=== PATIENT | male | born 1955 | race Caucasian/White ===

== ENCOUNTER → 2017-02-20 | Day surgery (SDC) | payer OTHER ==
[2016-03-15 11:20] VITALS: BP 140/59
[~2017-02-20] MED LIST: CETIRIZINE10 MG PO; DOXYCYCLINE HY100 M5 PO; FLONASE0.05 MG/AC NS; LISINOPRIL20 MG PO; METFORMIN HYDR500 M1 PO; OMEPRAZOLE D/R20 MG PO; PERCOCET 325 MG1 TA2 PO; PRILOSEC 20MG20 MG PO; PROPRANOLOL HY120 MG PO; SERZONE100 MG PO; TYLENOL 500MG500 MG PO; ULTRAM 50MG TAB50 MG PO; [UNRECOGNIZED DRUG - OTHER] PO
== END ==
LOC: MSO 13:25
DX: Z12.11 Encounter for screening for malignant neoplasm of colon (principal); K57.90 Diverticulosis of intestine, part unspecified, without perforation or abscess without bleeding; Z83.71 Family history of colonic polyps; I10 Essential (primary) hypertension; K21.9 Gastro-esophageal reflux disease without esophagitis; E11.9 Type 2 diabetes mellitus without complications; Z79.84 Long term (current) use of oral hypoglycemic drugs
CPT/HCPCS: 00810; J3010; J7030

== ENCOUNTER → 2020-07-21 | Outpatient (CLI) | payer MEDICARE, OTHER ==
[2016-03-15 11:20] VITALS: BP 140/59
== END ==
LOC: RAD 09:13
DX: M17.0 Bilateral primary osteoarthritis of knee (principal)

== ENCOUNTER 2021-03-26 18:53 | Emergency (ER) | payer MEDICARE, OTHER ==
[2021-03-26] MEDS ORDERED: GLUCOPHAGE PO (19:27)
[2021-03-26] MEDS ORDERED: LIPO-FLAVONOID1 EACH PO (19:29)
[2021-03-26] MEDS ORDERED: PIOGLITAZONE HY45 MG PO (19:30)
[2021-03-26] MEDS ORDERED: PRAVASTATIN SOD40 MG PO (19:30)
[2021-03-26] MEDS ORDERED: MULTI PRO CAPS1 EACH PO (19:31)
[2021-03-26] MEDS ORDERED: CLARITIN10 M1 PO (19:32)
[2021-03-26] MEDS ORDERED: PANTOPRAZOLE SO20 M1 PO (19:33)
[2021-03-26] MEDS ORDERED: FLUTICASON0.05 MG/AC NS (19:34)
[2021-03-26] MEDS ORDERED: XANAX0.25 M1 PO (19:35)
[2021-03-26 19:57] LABS: HEMATOCRIT 37.2 % (42.0-52.0); HEMOGLOBIN 12.4 g/dL (13.5-18.0); MEAN CELL VOLUME 93 fl (78-100); MEAN CORPUSCULAR HEMOGLOBIN 31 pg (27-31); MEAN CORPUSCULAR HGB CONC 33 g/dL (33-37); MEAN PLATELET VOLUME 9.1 fl (7.4-10.4); PLATELET COUNT 243 K/mm3 (130-400); RED BLOOD COUNT 4.02 M/mm3 (4.20-5.60); RED CELL DISTRIBUTION WIDTH 14.2 % (11.5-14.5); WHITE BLOOD COUNT 16.5 K/mm3 (4.8-10.8)
[2021-03-26 20:11] LABS: ALBUMIN 3.6 g/dL (3.4-4.8); POTASSIUM 4.2 mmol/L (3.5-5.1)
[2021-03-26 20:12] LABS: CALCIUM 9.1 mg/dL (8.3-10.5)
[2021-03-26 20:14] LABS: TOTAL PROTEIN 7.6 g/dL (6.2-8.1)
[2021-03-26 20:15] LABS: TOTAL BILIRUBIN 0.8 mg/dL (0.2-1.2)
[2021-03-26 21:08] LABS: LYMPHOCYTE 11 % (20-51); MONOCYTE 8 % (3-10); NEUTROPHILS 80 % (42-75)
[2021-03-26 21:28] LABS: PH-URINE 8.5 (5.0 - 8.0); URINE APPEARANCE CLEAR; URINE BILIRUBIN NEGATIVE (NEGATIVE); URINE BLOOD TRACE (NEGATIVE); URINE COLOR YELLOW; URINE GLUCOSE NEGATIVE (NEGATIVE); URINE KETONE NEGATIVE (NEGATIVE); URINE LEUKOCYTE ESTERASE NEGATIVE (NEGATIVE); URINE NITRATE NEGATIVE (NEGATIVE); URINE PROTEIN(semi-quant) TRACE mg/dL (NEGATIVE); URINE UROBILINOGEN NORMAL (NORMAL); URINE WBC 0-1 /hpf (0-3)
[2021-03-26 22:42] VITALS: BP 163/99
[2021-03-27] MEDS ORDERED: MELOXICAM15 MG PO (00:35)
[2021-03-27] MEDS ORDERED: ESCITALOPRAM10 MG PO (00:38)
== END 2021-03-26 22:47 | disposition other institution (70) ==
LOC: ED 18:53
PROVIDERS: Family Medicine
DX: K85.90 Acute pancreatitis without necrosis or infection, unspecified (principal); R09.1 Pleurisy; E11.9 Type 2 diabetes mellitus without complications; I10 Essential (primary) hypertension; K21.9 Gastro-esophageal reflux disease without esophagitis; F41.9 Anxiety disorder, unspecified; F32.9 Major depressive disorder, single episode, unspecified; E78.5 Hyperlipidemia, unspecified; E66.01 Morbid (severe) obesity due to excess calories; Z20.822 Contact with and (suspected) exposure to COVID-19; Z68.44 Body mass index [BMI] 60.0-69.9, adult; Z79.899 Other long term (current) drug therapy; Z79.84 Long term (current) use of oral hypoglycemic drugs
CPT/HCPCS: C9113; J2270

== ENCOUNTER 2021-03-26 21:34 | Inpatient (IN) | payer MEDICARE, OTHER ==
[~2021-03-26 21:34] MED LIST changes: +CLARITIN10 M1 PO; +FLUTICASON0.05 MG/AC NS; +GLUCOPHAGE PO; +LIPO-FLAVONOID1 EACH PO; +MULTI PRO CAPS1 EACH PO; +PANTOPRAZOLE SO20 M1 PO; +PIOGLITAZONE HY45 MG PO; +PRAVASTATIN SOD40 MG PO; +XANAX0.25 M1 PO
[2021-03-26 23:31] VITALS: BP 163/90
[2021-03-27] MEDS ORDERED: MELOXICAM15 MG PO (00:35)
[2021-03-27] MEDS ORDERED: ESCITALOPRAM10 MG PO (00:38)
[2021-03-27 01:57] VITALS: BP 180/82
[2021-03-27 06:00] VITALS: BP 159/85
[2021-03-27 08:23] LABS: HEMATOCRIT 38.8 % (42.0-52.0); HEMOGLOBIN 12.4 g/dL (13.5-18.0); MEAN PLATELET VOLUME 9.8 fl (7.4-10.4); RED BLOOD COUNT 4.19 M/mm3 (4.20-5.60); RED CELL DISTRIBUTION WIDTH 14.3 % (11.5-14.5); WHITE BLOOD COUNT 19.1 K/mm3 (4.8-10.8)
[2021-03-27 08:40] LABS: ALBUMIN 3.5 g/dL (3.4-4.8)
[2021-03-27 08:41] LABS: POTASSIUM 4.5 mmol/L (3.5-5.1)
[2021-03-27 08:43] LABS: TOTAL PROTEIN 7.8 g/dL (6.2-8.1)
[2021-03-27 10:20] VITALS: BP 160/84
[2021-03-27 13:44] VITALS: BP 132/69
[2021-03-27 16:50] VITALS: BP 154/70
[2021-03-27 21:49] VITALS: BP 164/75
[2021-03-28 01:55] VITALS: BP 144/79
[2021-03-28 06:02] VITALS: BP 148/72
[2021-03-28 08:27] LABS: BASO # 0.03 (0.02-0.10); EOS # 0.13 (0.04-0.40); EOS % 0.8 % (0.0-4.0); HEMATOCRIT 37.3 % (42.0-52.0); HEMOGLOBIN 11.9 g/dL (13.5-18.0); MEAN CELL VOLUME 94 fl (78-100); MEAN CORPUSCULAR HEMOGLOBIN 30 pg (27-31); MEAN CORPUSCULAR HGB CONC 32 g/dL (33-37); MEAN PLATELET VOLUME 8.9 fl (7.4-10.4); MONO # 1.48 (0.20-0.80); NEU # 12.81 (1.40-6.50); PLATELET COUNT 209 K/mm3 (130-400); RED BLOOD COUNT 3.98 M/mm3 (4.20-5.60); RED CELL DISTRIBUTION WIDTH 14.3 % (11.5-14.5); WHITE BLOOD COUNT 15.6 K/mm3 (4.8-10.8)
[2021-03-28 08:37] LABS: POTASSIUM 4.3 mmol/L (3.5-5.1)
[2021-03-28 08:38] LABS: CALCIUM 8.9 mg/dL (8.3-10.5)
[2021-03-28 10:14] VITALS: BP 147/76
[2021-03-28 13:46] VITALS: BP 135/74
[2021-03-28 15:58] LABS: URINE APPEARANCE CLEAR; URINE COLOR YELLOW
[2021-03-28 15:59] LABS: URINE BILIRUBIN 1+ (NEGATIVE); URINE BLOOD 250 ery/uL (NEGATIVE); URINE GLUCOSE NEGATIVE (NEGATIVE); URINE KETONE NEGATIVE (NEGATIVE); URINE LEUKOCYTE ESTERASE NEGATIVE (NEGATIVE); URINE MUCUS PRESENT (NOT PRESENT); URINE NITRATE NEGATIVE (NEGATIVE); URINE PROTEIN(semi-quant) 1+ mg/dL (NEGATIVE); URINE UROBILINOGEN NORMAL (NORMAL); URINE WBC 0-1 /hpf (0-3)
[2021-03-28 18:18] VITALS: BP 118/85
[2021-03-28 22:08] VITALS: BP 128/72
[2021-03-29 02:06] VITALS: BP 151/86
[2021-03-29 05:17] VITALS: BP 153/87
[2021-03-29 07:53] LABS: BASO # 0.02 (0.02-0.10); EOS # 0.19 (0.04-0.40); EOS % 1.8 % (0.0-4.0); HEMATOCRIT 36.7 % (42.0-52.0); HEMOGLOBIN 11.6 g/dL (13.5-18.0); LYMPH# 1.23 (1.50-4.00); MEAN CELL VOLUME 94 fl (78-100); MEAN CORPUSCULAR HEMOGLOBIN 30 pg (27-31); MEAN CORPUSCULAR HGB CONC 32 g/dL (33-37); MONO # 0.99 (0.20-0.80); NEU # 7.82 (1.40-6.50); PLATELET COUNT 226 K/mm3 (130-400); RED BLOOD COUNT 3.91 M/mm3 (4.20-5.60); RED CELL DISTRIBUTION WIDTH 14.2 % (11.5-14.5); WHITE BLOOD COUNT 10.3 K/mm3 (4.8-10.8)
[2021-03-29 08:01] LABS: POTASSIUM 4.4 mmol/L (3.5-5.1)
[2021-03-29 10:18] VITALS: BP 145/75
[2021-03-29 13:52] VITALS: BP 156/76
[2021-03-29 17:41] VITALS: BP 153/90
[2021-03-29 20:39] VITALS: BP 160/71
[2021-03-30 01:51] VITALS: BP 165/84
[2021-03-30 05:02] VITALS: BP 160/84
[2021-03-30 07:52] LABS: BASO # 0.03 (0.02-0.10); EOS # 0.29 (0.04-0.40); EOS % 3.9 % (0.0-4.0); HEMATOCRIT 35.8 % (42.0-52.0); HEMOGLOBIN 11.3 g/dL (13.5-18.0); LYMPH# 1.35 (1.50-4.00); MEAN CELL VOLUME 94 fl (78-100); MEAN CORPUSCULAR HEMOGLOBIN 30 pg (27-31); MEAN CORPUSCULAR HGB CONC 32 g/dL (33-37); MEAN PLATELET VOLUME 9.1 fl (7.4-10.4); MONO # 0.79 (0.20-0.80); NEU # 4.94 (1.40-6.50); PLATELET COUNT 238 K/mm3 (130-400); RED BLOOD COUNT 3.82 M/mm3 (4.20-5.60); RED CELL DISTRIBUTION WIDTH 14.3 % (11.5-14.5); WHITE BLOOD COUNT 7.5 K/mm3 (4.8-10.8)
[2021-03-30 08:07] LABS: ALBUMIN 3.3 g/dL (3.4-4.8); POTASSIUM 4.6 mmol/L (3.5-5.1)
[2021-03-30 08:08] LABS: CALCIUM 9.2 mg/dL (8.3-10.5)
[2021-03-30 08:09] LABS: TOTAL PROTEIN 7.5 g/dL (6.2-8.1)
[2021-03-30 08:11] LABS: TOTAL BILIRUBIN 0.6 mg/dL (0.2-1.2)
[2021-03-30 09:10] VITALS: BP 184/104
[2021-03-30] MEDS ORDERED: DOCUSATE SOD100 MG PO (12:22)
[2021-03-30] MEDS ORDERED: HEALTHYLAX17 GM/Dose PO (12:22)
[2021-03-30] MEDS ORDERED: AUGMENTIN 875-1 EAC1 PO (12:24)
[2021-03-30 13:30] VITALS: BP 161/101
[2021-03-30] MEDS ORDERED: AMLODIPINE BESYL5 MG PO (14:32)
[2021-03-30 14:58] VITALS: BP 183/79
[2021-03-30 15:37] VITALS: BP 134/61
== END 2021-03-30 16:00 | disposition home or self-care (01) | DRG 439 ==
LOC: MED/SURG 21:34
PROVIDERS: Nurse Practitioner Primary Care; Physician Assistant; ADMIT Family Medicine
DX: K85.90 Acute pancreatitis without necrosis or infection, unspecified (principal); Z68.44 Body mass index [BMI] 60.0-69.9, adult; E87.1 Hypo-osmolality and hyponatremia; K56.7 Ileus, unspecified; I10 Essential (primary) hypertension; I89.0 Lymphedema, not elsewhere classified; R09.02 Hypoxemia; G47.33 Obstructive sleep apnea (adult) (pediatric); K21.9 Gastro-esophageal reflux disease without esophagitis; Z20.822 Contact with and (suspected) exposure to COVID-19; E11.9 Type 2 diabetes mellitus without complications; F32.9 Major depressive disorder, single episode, unspecified; E66.01 Morbid (severe) obesity due to excess calories; D72.829 Elevated white blood cell count, unspecified; R09.1 Pleurisy; F41.9 Anxiety disorder, unspecified; K59.00 Constipation, unspecified; E78.5 Hyperlipidemia, unspecified; Z79.84 Long term (current) use of oral hypoglycemic drugs; Z88.2 Allergy status to sulfonamides; Z79.899 Other long term (current) drug therapy
CPT/HCPCS: C9113; J1650; J1885; J2270; J2543; J3480

== ENCOUNTER → 2021-07-01 | Outpatient (CLI) | payer MEDICARE, OTHER ==
[~2021-07-01] MED LIST changes: +AMLODIPINE BESYL5 MG PO; +AUGMENTIN 875-1 EAC1 PO; +DOCUSATE SOD100 MG PO; +ESCITALOPRAM10 MG PO; +HEALTHYLAX17 GM/Dose PO; +MELOXICAM15 MG PO
== END ==
LOC: RAD 12:58
DX: I08.2 Rheumatic disorders of both aortic and tricuspid valves (principal); R60.0 Localized edema

== ENCOUNTER → 2023-05-09 | Outpatient (CLI) | payer MEDICARE, OTHER | LOC: LAB 11:45 | DX: B99.9 Unspecified infectious disease (principal) ==

== ENCOUNTER 2023-10-05 15:15 | Emergency (ER) | payer MEDICARE, OTHER ==
[~2023-10-05] VITALS: Ht 182.9 cm; Wt 204.2 kg
[2023-10-05 16:39] LABS: ALBUMIN 3.5 g/dL (3.4-4.8)
[2023-10-05 16:41] LABS: CALCIUM 9.5 mg/dL (8.3-10.5)
[2023-10-05 16:42] LABS: TOTAL PROTEIN 7.7 g/dL (6.2-8.1)
[2023-10-05 16:58] LABS: BASO # 0.03 K/mm3 (0.02-0.10); EOS # 0.15 K/mm3 (0.04-0.40); EOS % 1.8 % (0.0-4.0); HEMATOCRIT 34.6 % (42.0-52.0); HEMOGLOBIN 10.8 g/dL (13.5-18.0); LYMPH# 1.74 K/mm3 (1.50-4.00); MEAN CELL VOLUME 94 fl (78-100); MEAN CORPUSCULAR HEMOGLOBIN 29 pg (27-31); MEAN CORPUSCULAR HGB CONC 31 g/dL (33-37); MEAN PLATELET VOLUME 9.2 fl (7.4-10.4); MONO # 0.78 K/mm3 (0.20-0.80); NEU # 5.65 K/mm3 (1.40-6.50); PLATELET COUNT 308 K/mm3 (130-400); RED BLOOD COUNT 3.67 M/mm3 (4.20-5.60); RED CELL DISTRIBUTION WIDTH 14.2 % (11.5-14.5); WHITE BLOOD COUNT 8.4 K/mm3 (4.8-10.8)
[2023-10-05 17:06] LABS: TOTAL BILIRUBIN 0.17 mg/dL (0.2-1.2)
[2023-10-05] MEDS ORDERED: LEVOFLOXACIN750 MG PO (17:17)
[2023-10-05 17:49] VITALS: BP 155/80
== END 2023-10-05 17:50 | disposition home or self-care (01) ==
LOC: ED 15:15
PROVIDERS: Nurse Practitioner Family
DX: L03.116 Cellulitis of left lower limb (principal); E66.9 Obesity, unspecified; Z88.2 Allergy status to sulfonamides
CPT/HCPCS: J0696